=== PATIENT | female | born 1950 | race Caucasian/White ===

== ENCOUNTER → 2016-06-03 | Outpatient (CLI) | payer BC ==
[2010-09-24 15:11] VITALS: BP 143/84
--- NOTE | 2016-06-03 15:14 | DI ---
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 Previous Exam: None at this facility. There is no soft tissue abnormality. The bony structures of the pelvis are normal. No blastic or lyti c lesions are identified in the pelvis or the lower lumbar spine. 2 views of the right hip are normal , and no blastic or lytic changes are seen in the proximal femur. Readin. Normal right hip exam. 2. The AP pelvis view is unremarkable. 3. There is no evidence of blastic or lytic lesions either in the pelvis or right hip.
== END ==
LOC: RAD 14:26
PROVIDERS: ATTEND Physician Assistant
DX: M25.551 Pain in right hip (principal); C79.89 Secondary malignant neoplasm of other specified sites
CPT/HCPCS: 73502